=== PATIENT | female | born 1980 | race Asian ===

== ENCOUNTER 2020-08-19 14:49 | Outpatient (CLI) | payer SELFPAY | END 2020-08-19 23:59 | disposition home or self-care (01) | LOC: RAD 14:49 | PROVIDERS: ATTEND Internal Medicine Hematology & Oncology | DX: R76.12 Nonspecific reaction to cell mediated immunity measurement of gamma interferon antigen response without active tuberculosis (principal) ==

== ENCOUNTER 2021-06-08 11:35 | Emergency (ER) | payer OTHER ==
[~2021-06-08] VITALS: Ht 152.4 cm; Wt 48.0 kg
[2021-06-08 12:11] VITALS: BP 104/69
--- NOTE | 2021-06-08 13:20 | NUR ---
COVID SWAB OBTAINED AND WALKED TO LAB.
--- NOTE | 2021-06-08 13:23 | NUR ---
Patient given discharge instructions and they have confirmed that they understand the instructions. Patient ambulatory with steady gait.
== END 2021-06-08 13:30 | disposition home or self-care (01) ==
LOC: ED 13:15
DX: Z00.00 Encounter for general adult medical examination without abnormal findings (principal); Z20.822 Contact with and (suspected) exposure to COVID-19
CPT/HCPCS: 99283; U0003; U0005